=== PATIENT | male | born 1990 | race Caucasian/White ===

== ENCOUNTER 2017-04-19 07:46 | Emergency (ER) | payer MEDICAID ==
[2017-04-19 08:00] VITALS: BP 131/82
== END 2017-04-19 08:50 | disposition home or self-care (01) ==
LOC: ED 07:46
DX: K64.9 Unspecified hemorrhoids (principal)

== ENCOUNTER 2017-06-17 13:14 | Emergency (ER) | payer MEDICAID ==
[~2017-06-17] VITALS: Ht 182.9 cm; Wt 103.0 kg
[2017-06-17 13:35] VITALS: Ht 182.9 cm; Wt 103.0 kg
[2017-06-17 17:47] VITALS: BP 116/62
== END 2017-06-17 18:02 | disposition home or self-care (01) ==
LOC: ED 13:14
DX: B34.9 Viral infection, unspecified (principal)
CPT/HCPCS: J1885

== ENCOUNTER 2018-08-03 10:48 | Emergency (ER) | payer MEDICAID ==
[~2018-08-03] VITALS: Ht 182.9 cm; Wt 97.5 kg
[2018-08-03 10:58] VITALS: Ht 182.9 cm; Wt 97.5 kg
[2018-08-03 13:57] VITALS: BP 122/76
== END 2018-08-03 13:57 | disposition home or self-care (01) ==
LOC: ED 10:48
DX: M54.5 Low back pain (principal)
CPT/HCPCS: J1885

== ENCOUNTER 2018-09-20 15:24 | Emergency (ER) | payer MEDICAID ==
[~2018-09-20] VITALS: Ht 182.9 cm; Wt 98.0 kg
[2018-09-20 15:41] VITALS: Ht 182.9 cm; Wt 98.0 kg
[2018-09-20 16:07] LABS: BASOPHIL % 0.8 % (0-2); PLATELET COUNT 218 x10^3mcL (130-400); RED CELL DISTRIBUTION WIDTH 12.4 % (11.5-14.5)
[2018-09-20 17:23] VITALS: BP 131/81
== END 2018-09-20 17:23 | disposition home or self-care (01) ==
LOC: ED 15:24
PROVIDERS: Emergency Medicine
DX: K62.5 Hemorrhage of anus and rectum (principal)
CPT/HCPCS: 36415